=== PATIENT | female | born 1960 | race Caucasian/White ===

== ENCOUNTER → 2018-12-27 | Outpatient (CLI) | payer OTHER ==
--- NOTE | 2018-12-27 13:03 | Diagnostic Imaging Report ---
INDICATION: Routine screening. COMPARISON: 11/14/2013. TECHNIQUE: 2D and 3D bilateral screening mammography was performed with CAD. FINDINGS: Scattered fibroglandular densities are identified bilaterally. Dystrophic calcifications in the retroareolar right breast are again noted. These may be secondary to fat necrosis. No new mass or malignant appearing microcalcifications are seen. The axillae are unremarkable. IMPRESSION: No mammographic features suspicious for malignancy are identified. ACR BI-RADS Category 2: Benign findings. Result letter will be mailed to the patient. Note: At least 10% of breast cancer is not imaged by mammography. Dictated by: Dictated on workstation # [id number]
== END ==
LOC: RAD 07:13
PROVIDERS: ATTEND Family Medicine
DX: Z12.31 Encounter for screening mammogram for malignant neoplasm of breast (principal); Z98.890 Other specified postprocedural states
CPT/HCPCS: 77067

== ENCOUNTER → 2022-03-01 | Outpatient (CLI) | payer OTHER ==
--- NOTE | 2022-03-01 09:47 | Diagnostic Imaging Report ---
PROCEDURE: US Renal Bilateral. TECHNIQUE: Multiple real-time grayscale images were obtained over the kidneys in various projections bilaterally. INDICATION: Microhematuria. Right kidney measures 10.5 x 4.8 x 5.3 cm and the left kidney measures 10.9 x 4.5 x 4.9 cm. There is a hypoechoic mass in the mid right kidney measuring 1.9 x 1.7 x 1.5 cm. There appears to be some vascularity along the margins. This cannot be characterized as purely cystic caliber. A solid lesion cannot be excluded. There are some small echogenic foci in the mid right kidney as well which may represent nonobstructing calculi. Bladder is unremarkable. Bilateral ureteral jets are visualized. IMPRESSION: Findings suspect for a solid mass in the mid right kidney. CT with and without IV contrast would be recommended for further characterization. In addition, there appear to be nonobstructing right renal calculi. Dictated by: Dictated on workstation # [id number]
--- NOTE | 2022-03-01 17:03 | Diagnostic Imaging Report ---
CLINICAL INDICATIONS: Patient with microhematuria. EXAM: X-ray of the abdomen with multiple supine and upright views. COMPARISON: None. FINDINGS AND IMPRESSION: 1: There is a 3 mm calcification seen on the right side of the L5 vertebra. Unknown if this represents ureter, vascular calcification or in the adjacent soft tissue. If necessary, CT scan would better evaluate. 2: There are multiple suspected phleboliths seen in the pelvis. If there is concern for stone in the ureters, CT scan would better evaluate. 3: Nonobstructive bowel gas pattern. There is no intra-abdominal free air. 4: Surgical clips are seen overlying the right upper quadrant which could be related to cholecystectomy changes. 5: There is left curvature of the thoracolumbar spine. There are degenerative spurs involving the spine. Dictated by: Dictated on workstation # [id number]
== END ==
LOC: RAD 08:23
PROVIDERS: ATTEND Urology
DX: M48.9 Spondylopathy, unspecified (principal); M46.00 Spinal enthesopathy, site unspecified
CPT/HCPCS: 74018; 76770

== ENCOUNTER → 2022-03-01 | Outpatient (CLI) | payer OTHER ==
--- NOTE | 2022-03-01 14:26 | Diagnostic Imaging Report ---
INDICATION: Routine screening. COMPARISON: 12/27/2018 and 11/14/2013. TECHNIQUE: 2D and 3D bilateral screening mammography was performed with CAD. FINDINGS: Scattered fibroglandular densities are identified bilaterally. The overall parenchymal pattern appears to be stable. There are numerous benign calcifications, particularly throughout the right breast. These have increased since the prior mammogram. An area of fat necrosis in the retroareolar right breast is again noted. No spiculated mass or malignant-appearing microcalcifications are seen. The axillae are unremarkable. IMPRESSION: No mammographic features suspicious for malignancy are identified. ACR BI-RADS Category 2: Benign findings. Result letter will be mailed to the patient. Note: At least 10% of breast cancer is not imaged by mammography. Dictated by: Dictated on workstation # [id number]
== END ==
LOC: RAD 08:31
PROVIDERS: ATTEND Nurse Practitioner Family
DX: Z12.31 Encounter for screening mammogram for malignant neoplasm of breast (principal)
CPT/HCPCS: 77063; 77067

== ENCOUNTER → 2022-03-25 | Outpatient (CLI) | payer OTHER ==
[~2022-03-25] MED LIST: CATHETER FLUSH 10 ML SYR IV PRN; HOLD METFORMIN - RECEIVED CONTRAST 20 ML VIAL IV SCH; IOHEXOL 350 MG/ML 100 ML (OMNIPAQUE 350) VIAL IV ONE; NS 100 ML (IVPB) BAG IV ONE
[2022-03-25 10:58] LABS: CREATININE SERUM 0.77 MG/DL (0.60-1.30)
--- NOTE | 2022-03-25 11:27 | Diagnostic Imaging Report ---
EXAMINATION: CT abdomen and pelvis with and without intravenous contrast. TECHNIQUE: Precontrast acquisitions were acquired through the abdomen and pelvis. Multiple contiguous axial images were obtained through the abdomen and pelvis after the administration of intravenous contrast. All CT scans use one or more of the following dose optimizing techniques: automated exposure control, MA and/or KvP adjustment based on patient size and exam type or iterative reconstruction. HISTORY: Right renal mass evaluation COMPARISON: 03/01/2022 FINDINGS: Lung bases: The lung bases are clear. Solid organs: The liver is normal without focal lesion. The gallbladder is surgically absent. There is no biliary ductal dilation. Pancreas is normal. Spleen is normal. Adrenal glands are normal. The kidneys are normal without hydronephrosis. No focal renal lesion. Bowel: The stomach and small bowel are normal without obstruction. The colon and appendix are normal. Peritoneum: There is no intraperitoneal free fluid or free air. No suspicious lymphadenopathy. Vasculature: Normal without aneurysm. Musculoskeletal: Degenerative changes of the spine without suspicious osseous lesion or compression fracture. Pelvis: The uterus is surgically absent. No adnexal mass. The urinary bladder is normal. IMPRESSION: 1. No acute abnormality in the abdomen or pelvis. 2. No focal renal lesion seen on CT to correspond to abnormality on prior ultrasound. Finding on prior ultrasound may represent a prominent column of Pawel. Dictated by: Dictated on workstation # [id number]
== END ==
LOC: RAD 11:15
PROVIDERS: ATTEND Urology
DX: N28.89 Other specified disorders of kidney and ureter (principal)
CPT/HCPCS: 36415; 74178; 82565; 84520